=== PATIENT | female | born 1990 ===

== ENCOUNTER 2022-10-06 13:58 | Outpatient (CLI) | payer OTHER | END 2022-10-06 14:11 | disposition home or self-care (01) | LOC: SONOGRAMA 13:58 | PROVIDERS: ATTEND Obstetrics & Gynecology | DX: R10.2 Pelvic and perineal pain (principal) ==

== ENCOUNTER 2022-10-28 09:44 | Outpatient (CLI) | payer OTHER | END 2022-10-28 09:58 | disposition home or self-care (01) | LOC: RX STUDY 09:44 | PROVIDERS: ATTEND Obstetrics & Gynecology | DX: N97.9 Female infertility, unspecified (principal) ==

== ENCOUNTER → 2024-12-07 | Outpatient (CLI) | payer OTHER | END | disposition home or self-care (01) | LOC: PRENATAL 12-06 15:07 | PROVIDERS: ATTEND Obstetrics & Gynecology Maternal & Fetal Medicine | DX: O36.80X0 Pregnancy with inconclusive fetal viability, not applicable or unspecified (principal); Z36.82 Encounter for antenatal screening for nuchal translucency; Z14.8 Genetic carrier of other disease; O09.519 Supervision of elderly primigravida, unspecified trimester; O28.3 Abnormal ultrasonic finding on antenatal screening of mother; Z3A.13 13 weeks gestation of pregnancy ==